=== PATIENT | male | born 1930 | race Caucasian/White ===

== ENCOUNTER 2016-06-10 08:31 | Inpatient (IN) | payer MEDICARE, OTHER ==
[2016-06-10] VITALS (336 sets, daily range): BP systolic 119–137; BP diastolic 79–98; PULSE 97–102; TEMP 98–99.2; O2SAT 70–100
[~2016-06-10] VITALS: Ht 170.2 cm; Wt 69.0 kg
[~2016-06-10 08:31] MED LIST: CEPHALEXIN500 M1 PO; COUMADIN 5MG5 MG/TAB PO; COUMADIN 77.5 MG/TAB PO; COZAAR100 MG PO; PREDNISONE10 MG PO; PREDNISONE20 MG PO; PRIL40 PO; SINEMET 25/101 UDTAB PO; ULTRAM 50MG TAB50 MG PO; ZESTRIL 20MG TA20 MG PO
[2016-06-10 09:56] LABS: BASO % 0.6 % (0.0-2.0); EOS % 0.3 % (0-4.0); GRAN # 6.2 (1.4-6.5); GRAN % 87.6 % (42.2-75.2); HEMATOCRIT 42.5 % (42.0-52.0); HEMOGLOBIN 13.4 g/dl (13.5-18.0); LYMPH # 0.6 (1.2-3.4); LYMPH % 8.3 % (20.0-51.0); MEAN CELL VOLUME 86 fl (80.0-100.0); MEAN CORPUSCULAR HEMOGLOBIN 27 pg (27.0-31.0); MEAN CORPUSCULAR HGB CONC 32 g/dl (33.0-37.0); MEAN PLATELET VOLUME 13.2 fl (7.4-10.4); MONO # 0.2 (0.1-0.6); MONO % 2.8 % (1.7-9.3); PLATELET COUNT 134 K/mm3 (130-400); RED BLOOD COUNT 4.94 M/mm3 (4.20-5.60); REDCELL DISTRIBUTION WIDTH-CV 16.7 % (11.5-14.5); WHITE BLOOD COUNT 7.1 K/mm3 (4.8-10.8)
[2016-06-10 10:00] LABS: INR 6.7 (0.8-3.0); PROTHROMBIN TIME 78.7 SECONDS (9.7-12.8)
[2016-06-10 10:12] LABS: ADJUSTED CALCIUM 10.4 mg/dL (8.4-10.2); ALBUMIN 4.1 gm/dL (3.5-5.0); BILIRUBIN,TOTAL 2.7 mg/dL (0.0-1.0); C-REACTIVE PROTEIN 0.6 mg/dL (0.0-0.9); CALCIUM 10.5 mg/dL (8.4-10.2); CREATININE, serum 1.22 mg/dL (0.66-1.25); POTASSIUM 4.2 mmol/L (3.4-5.0); TOTAL PROTEIN 7.2 gm/dL (6.4-8.2)
[2016-06-10 10:25] LABS: TROPONIN-I 0.052 ng/mL (0.000-0.034)
[2016-06-10] MEDS ORDERED: SINEMET CR 50 M1 TER PO (11:39)
[2016-06-10] MEDS ORDERED: PRIL40 PO (11:41)
[2016-06-10] MEDS ORDERED: REQUIP 0.5MG0.5 MG PO (11:43)
[2016-06-11] VITALS (613 sets, daily range): BP systolic 132–153; BP diastolic 81–112; PULSE 70–117; TEMP 97.1–98.5; O2SAT 58–100
[2016-06-11 05:54] LABS: BASO # 0.1 (0.0-0.2); EOS # 0.1 (0.0-0.7); EOS % 1.2 % (0-4.0); GRAN # 4.5 (1.4-6.5); GRAN % 75.1 % (42.2-75.2); HEMATOCRIT 39.6 % (42.0-52.0); HEMOGLOBIN 12.7 g/dl (13.5-18.0); LYMPH # 0.8 (1.2-3.4); LYMPH % 13.6 % (20.0-51.0); MEAN CELL VOLUME 86 fl (80.0-100.0); MEAN CORPUSCULAR HEMOGLOBIN 27 pg (27.0-31.0); MEAN CORPUSCULAR HGB CONC 32 g/dl (33.0-37.0); MEAN PLATELET VOLUME 13.1 fl (7.4-10.4); MONO # 0.5 (0.1-0.6); MONO % 8.9 % (1.7-9.3); PLATELET COUNT 127 K/mm3 (130-400); RED BLOOD COUNT 4.63 M/mm3 (4.20-5.60); REDCELL DISTRIBUTION WIDTH-CV 16.9 % (11.5-14.5)
[2016-06-11 06:05] LABS: ADJUSTED CALCIUM 9.4 mg/dL (8.4-10.2); ALBUMIN 3.5 gm/dL (3.5-5.0); CREATININE, serum 1.21 mg/dL (0.66-1.25); POTASSIUM 3.4 mmol/L (3.4-5.0); TOTAL PROTEIN 6.4 gm/dL (6.4-8.2)
[2016-06-11 06:15] LABS: INR 7.1 (0.8-3.0); PROTHROMBIN TIME 83.4 SECONDS (9.7-12.8)
[2016-06-12] VITALS (185 sets, daily range): BP systolic 122–151; BP diastolic 11–96; PULSE 98–118; TEMP 96.9–98.5; O2SAT 79–97
[2016-06-12 05:57] LABS: ADD PATHOLOGY DIFF REVIEW NO
[2016-06-12 06:06] LABS: HEMATOCRIT 43.1 % (42.0-52.0); HEMOGLOBIN 13.6 g/dl (13.5-18.0); MEAN CELL VOLUME 87 fl (80.0-100.0); MEAN CORPUSCULAR HEMOGLOBIN 27 pg (27.0-31.0); MEAN CORPUSCULAR HGB CONC 32 g/dl (33.0-37.0); PLATELET COUNT 120 K/mm3 (130-400); RED BLOOD COUNT 4.97 M/mm3 (4.20-5.60); REDCELL DISTRIBUTION WIDTH-CV 16.9 % (11.5-14.5)
[2016-06-12 06:13] LABS: ADJUSTED CALCIUM 9.1 mg/dL (8.4-10.2); ALBUMIN 3.8 gm/dL (3.5-5.0); CALCIUM 8.9 mg/dL (8.4-10.2); CREATININE, serum 1.07 mg/dL (0.66-1.25); MAGNESIUM 1.9 mg/dL (1.6-2.3); POTASSIUM 3.6 mmol/L (3.4-5.0); TOTAL PROTEIN 6.9 gm/dL (6.4-8.2)
[2016-06-12 06:20] LABS: INR 2.7 (0.8-3.0); PROTHROMBIN TIME 30.5 SECONDS (9.7-12.8)
[2016-06-12 07:34] LABS: BAND 4 % (0-10); BASOPHIL 1 % (0-2); METAMYELOCYTE 1 % (0-0); NEUTROPHILS 84 % (42.0-75.2); TOTAL CELLS COUNTED 100
[2016-06-12 07:37] LABS: ANISOCYTOSIS 1+; BURR CELLS 1+
[2016-06-12 07:39] LABS: PLATELET ESTIMATE DECREASED (NORMAL)
[2016-06-12 16:02] LABS: PH 5 (5-8); SQUAMOUS EPITHELIAL None Seen /hpf; URINE APPEARANCE Hazy; URINE BACTERIA None Seen /hpf; URINE BILIRUBIN Negative (NEGATIVE); URINE BLOOD Negative (NEGATIVE); URINE COLOR Yellow; URINE GLUCOSE Negative (NEGATIVE); URINE KETONE 1+ (NEGATIVE); URINE RBC 0-2 /hpf; URINE UROBILINOGEN Negative (NEGATIVE); URINE WBC 0-2 /hpf
[2016-06-13 00:02] VITALS: BP 148/94; PULSE 104; TEMP 98.2
[2016-06-13 05:47] VITALS: BP 145/98; PULSE 103; TEMP 97.6
[2016-06-13 07:20] LABS: ADD PATHOLOGY DIFF REVIEW NO
[2016-06-13 07:39] LABS: INR 1.8 (0.8-3.0); PROTHROMBIN TIME 20.2 SECONDS (9.7-12.8)
[2016-06-13 07:43] LABS: ADJUSTED CALCIUM 9.2 mg/dL (8.4-10.2); ALBUMIN 4.1 gm/dL (3.5-5.0); CALCIUM 9.3 mg/dL (8.4-10.2); CREATININE, serum 1.21 mg/dL (0.66-1.25); POTASSIUM 3.6 mmol/L (3.4-5.0); TOTAL PROTEIN 7.5 gm/dL (6.4-8.2)
[2016-06-13 07:50] LABS: HEMATOCRIT 41.7 % (42.0-52.0); HEMOGLOBIN 13.7 g/dl (13.5-18.0); MEAN CELL VOLUME 84 fl (80.0-100.0); MEAN CORPUSCULAR HEMOGLOBIN 28 pg (27.0-31.0); MEAN CORPUSCULAR HGB CONC 33 g/dl (33.0-37.0); MEAN PLATELET VOLUME 13.2 fl (7.4-10.4); PLATELET COUNT 163 K/mm3 (130-400); RED BLOOD COUNT 4.96 M/mm3 (4.20-5.60); REDCELL DISTRIBUTION WIDTH-CV 17.2 % (11.5-14.5); WHITE BLOOD COUNT 9.3 K/mm3 (4.8-10.8)
[2016-06-13 08:15] LABS: BILIRUBIN,DIRECT 0.9 mg/dL (0.0-0.4); BILIRUBIN,TOTAL 3.6 mg/dL (0.0-1.0)
[2016-06-13 08:31] VITALS: BP 168/90; PULSE 105; TEMP 97.4
[2016-06-13 09:38] LABS: BASOPHIL 3 % (0-2); NEUTROPHILS 82 % (42.0-75.2); TOTAL CELLS COUNTED 100
[2016-06-13 09:39] LABS: ANISOCYTOSIS 1+; HYPOCHROMIA 1+; MICROCYTOSIS 1+; OVALOCYTES 1+; POIKILOCYTOSIS 2+; POLYCHROMASIA 1+
[2016-06-13 09:40] LABS: ACANTHOCYTES 1+; BURR CELLS 1+
[2016-06-13 09:50] LABS: PLATELET ESTIMATE NORMAL (NORMAL)
[2016-06-13] MEDS ORDERED: ASPIRIN E.C. 8181 MG PO (11:09)
[2016-06-13] MEDS ORDERED: COUMADIN 5MG5 MG/TAB PO (11:09)
[2016-06-13] MEDS ORDERED: PLAVIX 75MG TAB75 MG PO (11:09)
[2016-06-13] MEDS ORDERED: SINEMET 25/101 UDTAB PO (11:11)
[2016-06-13] MEDS ORDERED: PRIL40 PO (11:11)
[2016-06-13] MEDS ORDERED: NORCO 325 MG-51 TAB PO (11:13)
[2016-06-13 11:37] VITALS: BP 159/98; PULSE 105; TEMP 97.8
== END 2016-06-13 12:20 | disposition home or self-care (01) | DRG 392 ==
LOC: COL.ER 08:31 → IMCU 12:01 → MEDICAL 06-12 17:31
PROVIDERS: Emergency Medicine; Family Medicine; Internal Medicine; Internal Medicine Gastroenterology
PROC: 0DJ08ZZ Inspection of Upper Intestinal Tract, Via Natural or Artificial Opening Endoscopic (ICD-10-PCS; principal; 2016-06-11 14:45)
DX: R10.13 Epigastric pain (principal); I48.91 Unspecified atrial fibrillation; I12.9 Hypertensive chronic kidney disease with stage 1 through stage 4 chronic kidney disease, or unspecified chronic kidney disease; N18.9 Chronic kidney disease, unspecified; G20 Parkinson's disease; Z95.2 Presence of prosthetic heart valve; E80.6 Other disorders of bilirubin metabolism
CPT/HCPCS: 99233-AI; 99239; C9113; G0378; G8978-GP; G8979-GP; J0360; J1940; J2250; J3010; J7030; Q9967

== ENCOUNTER 2017-07-20 10:23 | Emergency (ER) | payer MEDICARE, OTHER ==
[~2017-07-20] VITALS: Ht 172.7 cm; Wt 60.5 kg
[~2017-07-20 10:23] MED LIST changes: +ASPIRIN E.C. 8181 MG PO; +NORCO 325 MG-51 TAB PO; +OMNICEF 300MG300 MG PO; +PLAVIX 75MG TAB75 MG PO; +PROAIR HFA0.09 MG/AC IH; +REQUIP 0.5MG0.5 MG PO; +SINEMET CR 50 M1 TER PO; +TOPROL XL 25MG25 MG PO; +XANAX .25M0.25 MG/TA PO; +ZESTRIL2.5 MG PO; +ZITHROMAX500 M2 PO
[2017-07-20 10:26] VITALS: TEMP 98.6
[2017-07-20] MEDS ORDERED: COUMADIN 77.5 MG/TAB PO (10:47)
[2017-07-20 11:01] LABS: BASO % 0.7 % (0.0-2.0); EOS % 0.7 % (0-4.0); GRAN # 1.3 (1.4-6.5); GRAN % 47.3 % (42.2-75.2); HEMATOCRIT 38.9 % (42.0-52.0); HEMOGLOBIN 12.5 g/dl (13.5-18.0); LYMPH % 34.3 % (20.0-51.0); MEAN CELL VOLUME 96 fl (80.0-100.0); MEAN CORPUSCULAR HEMOGLOBIN 31 pg (27.0-31.0); MEAN CORPUSCULAR HGB CONC 32 g/dl (33.0-37.0); MEAN PLATELET VOLUME 12.4 fl (7.4-10.4); MONO # 0.5 (0.1-0.6); MONO % 15.9 % (1.7-9.3); PLATELET COUNT 77 K/mm3 (130-400); RED BLOOD COUNT 4.04 M/mm3 (4.20-5.60)
[2017-07-20 11:02] LABS: COLLECTION METHOD CLEAN CATCH
[2017-07-20 11:09] LABS: PH 6 (5-8); URINE APPEARANCE Hazy; URINE BACTERIA None Seen /hpf; URINE BILIRUBIN Negative (NEGATIVE); URINE BLOOD Negative (NEGATIVE); URINE COLOR Yellow; URINE GLUCOSE Negative (NEGATIVE); URINE KETONE Negative (NEGATIVE); URINE LEUKOCYTE ESTERASE Negative (NEGATIVE); URINE NITRATE Negative (NEGATIVE); URINE PROTEIN(semi-quant) 2+ (NEGATIVE); URINE RBC 0-2 /hpf; URINE UROBILINOGEN Negative (NEGATIVE)
[2017-07-20 11:12] LABS: ALBUMIN 4.2 gm/dL (3.5-5.0); BILIRUBIN,TOTAL 1.3 mg/dL (0.0-1.0); CALCIUM 9.8 mg/dL (8.4-10.2); CREATININE, serum 1.43 mg/dL (0.66-1.25); POTASSIUM 4.4 mmol/L (3.4-5.0); TOTAL PROTEIN 7.8 gm/dL (6.4-8.2)
[2017-07-20] MEDS ORDERED: LEVAQUIN 5500 MG/TA1 PO (11:35)
[2017-07-20] MEDS ORDERED: LASIX 40MG TABL40 MG PO (11:40)
[2017-07-20 12:12] VITALS: BP 136/79; PULSE 63
== END 2017-07-20 12:13 | disposition home or self-care (01) ==
LOC: COL.ER 10:23
PROVIDERS: Family Medicine
DX: N34.2 Other urethritis (principal); J18.9 Pneumonia, unspecified organism; I11.0 Hypertensive heart disease with heart failure; I50.9 Heart failure, unspecified; K21.9 Gastro-esophageal reflux disease without esophagitis; F60.9 Personality disorder, unspecified; Z95.2 Presence of prosthetic heart valve; Z86.73 Personal history of transient ischemic attack (TIA), and cerebral infarction without residual deficits; Z79.01 Long term (current) use of anticoagulants
CPT/HCPCS: J7030

== ENCOUNTER 2017-07-31 08:44 | Emergency (ER) | payer MEDICARE, OTHER ==
[~2017-07-31] VITALS: Ht 172.7 cm; Wt 61.4 kg
[~2017-07-31 08:44] MED LIST changes: +LASIX 40MG TABL40 MG PO; +LEVAQUIN 5500 MG/TA1 PO
[2017-07-31 08:58] VITALS: TEMP 98
[2017-07-31 09:28] LABS: MEAN CELL VOLUME 95 fl (80.0-100.0); MEAN CORPUSCULAR HGB CONC 33 g/dl (33.0-37.0); MEAN PLATELET VOLUME 11.4 fl (7.4-10.4); PLATELET COUNT 55 K/mm3 (130-400); RED BLOOD COUNT 3.59 M/mm3 (4.20-5.60); REDCELL DISTRIBUTION WIDTH-CV 16.9 % (11.5-14.5)
[2017-07-31 09:29] LABS: HEMATOCRIT 34.2 % (42.0-52.0); HEMOGLOBIN 11.1 g/dl (13.5-18.0); MEAN CORPUSCULAR HEMOGLOBIN 31 pg (27.0-31.0)
[2017-07-31 09:36] LABS: ALBUMIN 3.9 gm/dL (3.5-5.0); BILIRUBIN,TOTAL 1.3 mg/dL (0.0-1.0); CALCIUM 8.9 mg/dL (8.4-10.2); CREATININE, serum 1.36 mg/dL (0.66-1.25); POTASSIUM 4.3 mmol/L (3.4-5.0); TOTAL PROTEIN 7.3 gm/dL (6.4-8.2)
[2017-07-31 09:46] LABS: TROPONIN-I 0.018 ng/mL (0.000-0.034)
[2017-07-31 10:05] LABS: INR 3.6 (0.8-3.0); PROTHROMBIN TIME 42.5 SECONDS (9.7-12.8)
[2017-07-31 10:08] LABS: LYMPHOCYTE 36 % (20.0-51.0); NEUTROPHILS 58 % (42.0-75.2)
[2017-07-31 10:09] LABS: ANISOCYTOSIS 1+
[2017-07-31 11:55] VITALS: BP 161/81; PULSE 81
[2017-07-31 12:02] LABS: COLLECTION METHOD CLEAN CATCH
[2017-07-31 12:15] LABS: PH 6 (5-8); SQUAMOUS EPITHELIAL 0-2 /hpf; URINE APPEARANCE Clear; URINE BACTERIA None Seen /hpf; URINE BILIRUBIN Negative (NEGATIVE); URINE BLOOD Negative (NEGATIVE); URINE COLOR Yellow; URINE GLUCOSE Negative (NEGATIVE); URINE KETONE Negative (NEGATIVE); URINE LEUKOCYTE ESTERASE Negative (NEGATIVE); URINE NITRATE Negative (NEGATIVE); URINE PROTEIN(semi-quant) 1+ (NEGATIVE); URINE RBC 0-2 /hpf; URINE UROBILINOGEN Negative (NEGATIVE)
== END 2017-07-31 11:56 | disposition home or self-care (01) ==
LOC: COL.ER 08:44
PROVIDERS: Emergency Medicine
DX: R07.1 Chest pain on breathing (principal); R91.8 Other nonspecific abnormal finding of lung field; D61.818 Other pancytopenia; I48.91 Unspecified atrial fibrillation; K21.9 Gastro-esophageal reflux disease without esophagitis; G20 Parkinson's disease; Z86.73 Personal history of transient ischemic attack (TIA), and cerebral infarction without residual deficits; Z87.11 Personal history of peptic ulcer disease; Z90.89 Acquired absence of other organs; Z90.49 Acquired absence of other specified parts of digestive tract; Z98.890 Other specified postprocedural states; Z95.2 Presence of prosthetic heart valve; Z79.01 Long term (current) use of anticoagulants
CPT/HCPCS: J7040